=== PATIENT | male | born 1990 | race Caucasian/White ===

== ENCOUNTER 2022-06-06 10:22 | Emergency (ER) | payer SELFPAY ==
[2022-06-06 10:40] VITALS: BP 129/78; PULSE 94; RESP 18; TEMP 98; BMI 25.8
== END 2022-06-06 12:20 | disposition home or self-care (01) ==
LOC: JER 10:22 → JERFT 10:22
DX: R09.89 Other specified symptoms and signs involving the circulatory and respiratory systems (principal)
CPT/HCPCS: 72040-TC; 87651; 99284-25

== ENCOUNTER 2024-12-15 13:07 | Emergency (ER) | payer OTHER ==
[2024-12-15 13:17] VITALS: TEMP 98.1; BMI 28.1
[2024-12-15 16:18] LABS: ABSOLUTE IMMATURE GRANULOCYTES 0.00 x10^3/uL (0.0-0.031); BASOPHILS # 0.02 x10^3/uL (0.01-0.08); EOSINOPHIL % 5.8 % (0.8-7.0); EOSINOPHILS # 0.21 x10^3/uL (0.04-0.54); MCHC 30.4 g/dl (32.3-36.5); MEAN CELL VOLUME 84.8 fl (79.0-92.2); MEAN PLT VOLUME 10.0 fl (9.4-12.4); MONOCYTE # 0.23 x10^3/uL (0.30-0.82); MONOCYTE % 6.3 % (5.3-12.2); RDW 14.3 % (12.0-15.6)
[2024-12-15] MEDS ORDERED: DALBAVANCIN HCL 500 MG VIAL (RESTRICTED TO ID ONLY) IVPB ONE (16:33)
[2024-12-15 16:43] LABS: GLUCOSE,RANDOM 113.0 mg/dL (74-106); TOT PROT 9.0 g/dl (6.4-8.2)
[2024-12-15] MEDS: DALBAVANCIN HCL 1,500 MG in DEXTROSE 5%-WATER - 500 ML IVPB ONE (16:43)
[2024-12-15 16:44] LABS: CO2 23.0 mmol/L (21-32)
[2024-12-15 16:46] LABS: ALK PHOS 131.0 U/L (40-150)
[2024-12-15 16:49] LABS: CREATININE 0.67 mg/dL (0.55-1.3); SGOT/AST 46.0 U/L (5-34); SGPT/ALT 16.0 U/L (0-55)
[2024-12-15 16:52] LABS: ERYTHROCYTE SEDIMENTATION RATE 83 mm/hr (0-10)
[2024-12-15 17:09] LABS: HIV INTERPRETATION NEGATIVE (NEGATIVE)
[2024-12-15 18:08] LABS: HCV DIAGNOSTIC IN-HOUSE W/RFLX REACTIVE (NONREACTIVE)
[2024-12-15 19:47] VITALS: BP 122/66; PULSE 80; RESP 18
== END 2024-12-15 19:54 | disposition home or self-care (01) ==
LOC: JER 13:07
DX: S81.801A Unspecified open wound, right lower leg, initial encounter (principal); S81.802A Unspecified open wound, left lower leg, initial encounter; L03.115 Cellulitis of right lower limb; L03.116 Cellulitis of left lower limb; W46.0XXA Contact with hypodermic needle, initial encounter
CPT/HCPCS: 36415; 73590-TC-LT-FY; 73590-TC-RT-FY; 80053; 85025; 85651; 86140; 86803; 87040; 87070; 87205; 87389; 87522; 99284-25; J0875